=== PATIENT | female | born 1945 | race Caucasian/White ===

== ENCOUNTER → 2017-10-20 | Outpatient (CLI) | payer OTHER ==
[2017-10-20 12:51] LABS: BASO % 0.6 %; BASO ABS # 0.03 K/uL (0-0.2); EOS ABS # 0.28 K/uL (0-0.5); HEMATOCRIT 40.4 % (37-47); HEMOGLOBIN 13.5 g/dL (12.0-16.0); LYMPH % 29.3 %; LYMPH ABS # 1.36 K/uL (1.2-3.4); MEAN CORPUSCULAR HEMOGLOBIN 30.8 pg (25-34); MEAN CORPUSCULAR HGB CONC 33.4 g/dl (32-36); MEAN PLATELET VOLUME 11.7 fL (7.4-10.4); MONO % 8.6 %; NEUT % 55.5 %; NEUT ABS # 2.57 K/uL (1.4-6.5); PLATELET COUNT 244 K/uL (130-400); RED CELL DISTRIBUTION WIDTH CV 13.4 % (11.5-14.5); WHITE BLOOD COUNT 4.64 K/uL (4.8-10.8)
[2017-10-20 13:23] LABS: ALBUMIN 3.4 gm/dl (3.4-5.0); ALKALINE PHOSPHATASE 46 U/L (45-117); ALT/SGPT 27 U/L (12-78); AST/SGOT 19 U/L (15-37); BLOOD UREA NITROGEN 18 mg/dl (7-18); CALCIUM 8.7 mg/dl (8.5-10.1); CARBON DIOXIDE 27 mmol/L (21-32); CHOLESTEROL 181 mg/dl (0-200); CREATININE 0.73 mg/dl (0.60-1.20); GLUCOSE 85 mg/dl (70-99); LDL CHOLESTEROL CALCULATED 112 mg/dl; POTASSIUM 3.6 mmol/L (3.5-5.1); SODIUM 138 mmol/L (136-145); TOTAL PROTEIN 7.1 gm/dl (6.4-8.2)
== END | disposition home or self-care (01) ==
LOC: C.LABMFLN 08:48
PROVIDERS: ATTEND Family Medicine
DX: E78.5 Hyperlipidemia, unspecified (principal); I10 Essential (primary) hypertension

== ENCOUNTER 2021-05-21 07:47 | Observation (INO) ==
--- NOTE | 2021-03-31 12:05 | PAT Medication Instructions ---
Medication Instructions Date of Service March 31, 2021 Home Medications Medication Instructions Recorded fluticasone propionate 50 2 sprays INTNAS DAILY PRN #9.9 gm 05/14/19 mcg/actuation nasal spray,suspension (Flonase Allergy Relief) lovastatin 40 mg tablet 80 mg PO QPM #180 tab 05/01/20 buspirone 10 mg tablet 10 mg PO BID #60 tab 07/21/20 amoxicillin 875 mg-potassium 1 tab PO BID #20 tab 10/22/20 clavulanate 125 mg tablet (Augmentin) zolpidem 10 mg tablet 5 mg PO UD PRN #30 tab 03/08/21 fluticasone propionate 50 mcg/actuation nasal spray,suspension (Flonase Allergy Relief) 2 sprays INTNAS DAILY PRN acetaminophen 500 mg tablet 500 mg PO .COMPLEX PRN aspirin 81 mg tablet,delayed release 81 mg PO QAM lovastatin 40 mg tablet 80 mg PO QPM buspirone 10 mg tablet 10 mg PO BID amoxicillin 875 mg-potassium clavulanate 125 mg tablet (Augmentin) 1 tab PO BID zolpidem 10 mg tablet 5 mg PO UD PRN citalopram 20 mg tablet 20 mg PO QAM hydrochlorothiazide 25 mg tablet 25 mg PO QAM loratadine 10 mg tablet (Claritin) 10 mg PO QAM losartan 100 mg tablet 100 mg PO QAM Continue as directed amoxicillin 875 mg-potassium clavulanate 125 mg tablet (Augmentin) 1 tab PO BID ASK your prescriber and surgeon aspirin 81 mg tablet,delayed release 81 mg PO QAM DO NOT take the morning of surgery hydrochlorothiazide 25 mg tablet 25 mg PO QAM loratadine 10 mg tablet (Claritin) 10 mg PO QAM losartan 100 mg tablet 100 mg PO QAM Take morning of surgery With a small sip of water, OTHERWISE NOTHING TO EAT OR DRINK AFTER MIDNIGHT: acetaminophen 500 mg tablet 500 mg PO .COMPLEX PRN(okay to take up to 4 hours prior to surgery if needed). fluticasone propionate 50 mcg/actuation nasal spray,suspension (Flonase Allergy Relief) 2 sprays INTNAS DAILY PRN(if needed) buspirone 10 mg tablet 10 mg PO BID citalopram 20 mg tablet 20 mg PO QAM Take evening before surgery acetaminophen 500 mg tablet 500 mg PO .COMPLEX PRN(if needed) fluticasone propionate 50 mcg/actuation nasal spray,suspension (Flonase Allergy Relief) 2 sprays INTNAS DAILY PRN(if needed) lovastatin 40 mg tablet 80 mg PO QPM buspirone 10 mg tablet 10 mg PO BID zolpidem 10 mg tablet 5 mg PO UD PRN(if needed) Other Notes If you have any questions please call us at [phone] or [phone] or [phone] or [phone]
--- NOTE | 2021-04-13 12:44 | Anesthesiology Consultation ---
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 No known Covid positive exposures or Covid related symptoms. No known Covid infection in the past 90 days. Pt is vaccinated for Covid. Preop Covid testing scheduled 05/19/21 = will await results. Educated on importance of self quarantining, social distancing and wearing mask in public for the patient one week prior to surgery and after Covid testing done Pt seen by PCP 04/05/21= seen for preop evaluation. Patient will have lab work with her preop testing 04/13/21. Patient was seen by cardiology 06/22/2020 = history of syncope attributed to A mbien use (no further syncope since discontinuation of Ambien) 4 beat run of nonsustained V. tach on Holter monitor (asymptomatic) Mild to moderate mitral regurgitation. Hypertension. Holter monitor results are benign results and no further cardiac work-up is necessary since the patient is asymptomatic. Has not had any further episodes of syncope since stopping Ambien. No further work-up is necessary, should patient become symptomatic with these PVCs/PACs can consider adding low-dose metoprolol. Hypertensionwell-controlled. Continue cu rrent meds. Teaching & Discussion Pre-Anesthesia Teaching/Discussion Notes: Instructed NPO after midnight before surgery,except medications with 15 cc of water. Medication instructions provided according to the PAT guidelines. History Surgery Operation Date: 05/21/21 11:45 Proposed Procedures p Left Total Knee Arthroplasty with Possible Hebert Substitute (Augment), Hardware Removal - Kayden Hollingsworth DO Height/Weight Height: 5 ft 2 in Weight: 77.2 kg Allergies Allergy/AdvReac Type Severity Reaction Status Date / Time acetaminophen [From Percocet] Allergy Mild Rash Verified 04/05/21 13:31 oxycodone [From Percocet] Allergy Mild Rash Verified 04/05/21 13:31 Lisinopril TABS Allergy Mild Cough Uncoded 04/13/21 12:39 Medications Home Medications Medication Instructions Recorded Confirmed Last Taken fluticasone propionate 50 2 sprays INTNAS DAILY PRN #9.9 gm 05/14/19 04/05/21 02/18/20 mcg/actuation nasal spray,suspension (Flonase Allergy Relief) acetaminophen 500 mg tablet 500 mg PO .COMPLEX PRN tab 06/27/19 04/05/21 Unknown aspirin 81 mg tablet,delayed 81 mg PO QAM 02/07/20 04/05/21 Unknown release lovastatin 40 mg tablet 80 mg PO QPM #180 tab 05/01/20 04/05/21 Unknown buspirone 10 mg tablet 10 mg PO BID #60 tab 07/21/20 04/05/21 Unknown zolpidem 10 mg tablet 5 mg PO UD PRN #30 tab 03/08/21 04/05/21 Unknown citalopram 20 mg tablet 20 mg PO QAM 03/29/21 04/05/21 Unknown hydrochlorothiazide 25 mg tablet 25 mg PO QAM 03/29/21 04/05/21 Unknown loratadine 10 mg tablet (Claritin) 10 mg PO QAM PRN 03/29/21 04/05/21 Unknown losartan 100 mg tablet 100 mg PO QAM 03/29/21 04/05/21 Unknown Past Medical History Medical History (Updated 04/13/21 @ 16:35 by Kat Huynh PA-C) Anxiety and depression GERD (gastroesophageal reflux disease) No meds- well controlled and stable HTN (hypertension) Hyperlipemia Insomnia Osteoarthritis Prediabetes Per Hgb A1C 6.0 Exercise / Class Metabolic Activity II 4-5 Yardwork/Stairs/Walk up hill (one flight of stairs- no chest pain or SOB- pt tries to do 10,000 steps/day ) Past Family History Family History Aunt Diabetes Breast cancer Family/Other Colorectal cancer Other Family history of colon cancer Denies family history of Ovarian cancer Prostate cancer Myocardial infarction Past Surgical History Surgical History History of colonoscopy History of surgery on left wrist History of tooth extraction History of tubal ligation Hx of cataract extraction bilat S/P ORIF (open reduction internal fixation) fracture left knee Past Anesthesia History No Hx of Anesthesia Complications and No Family Hx of Anesthesia Complications History of PONV No Hx of PONV and No Hx of Motion Sickness Social History Smoking Status: Never smoker Do You Dip or Chew Tobacco: No Hx Alcohol Use: Yes Alcohol type: wine alcohol intake frequency: 0-2 drinks per day (1 glass of wine/day ) Hx Substance Use: No substance use type: does not use Review of Systems Mild cough- chronic- stable- mostly in the morning- chronic sinus issues - post nasal drip Patient denies chest pain, shortness of breath, dyspnea on exertion, wheezing, palpitations. No hx of seizures, stroke, TN, apnea/snoring. No hx of blood clots or blood transfusions Physical Exam Vital Signs VITALS BP 114/74 P 85 TEMP 98.2 SP02 95% RESP 16 Constitutional no acute distress ENMT Mouth: no TMJ clicking Thyromental Distance: > or= 3.5 Finger Breadths (3.5) Mallampati Class: I Missing molars Neck neck extension not limited Respiratory normal respiratory effort; no respiratory distress Auscultation: lungs clear to auscultation bilaterally; no wheezes Cardiovascular Rate/Rhythm: regular rate and regular rhythm Heart Sounds: no murmur Vessels: no carotid bruit Musculoskeletal Spine: no pain with cervical ROM Extremities: extremities normal to inspection Psychiatric Orientation: alert Lab Results Anesthesia Preop Results Results Anesthesia Widget: WBC 7.17 K/uL (4.8-10.8) 04/13/21 Hgb 13.0 g/dL (12.0-16.0) 04/13/21 Hct 39.7 % (37-47) 04/13/21 Plt 304 K/uL (130-400) 04/13/21 Na 142 mmol/L (136-145) 04/13/21 K 4.0 mmol/L (3.5-5.1) 04/13/21 Cl 105 mmol/L (98-107) 04/13/21 CO2 30 mmol/L (21-32) 04/13/21 BUN 16 mg/dl (6-23) 04/13/21 Creat 0.80 mg/dl (0.6-1.2) 04/13/21 Glucose Level 164 mg/dl (70-99) H 04/13/21 PT 10.0 Seconds (9.0-12.0) 04/13/21 PTT 28.5 Seconds (21.0-31.0) 04/13/21 INR 1.0 (0.9-1.1) 04/13/21 HA1c 6.0 % (4.5-5.6) H 04/13/21 Urine Color Yellow 04/13/21 Urine Appearance Clear (Clear) 04/13/21 Urine pH 5.0 (4.5-7.5) 04/13/21 Urine Specific Brooten 1.017 (1.000-1.030) 04/13/21 Urine Protein Negative (Negative) 04/13/21 Urine Glucose (UA) Negative (Negative) 04/13/21 Urine Ketones Trace (Negative) H 04/13/21 Urine Blood Negative (Negative) 04/13/21 Urine Nitrite Negative (Negative) 04/13/21 Urine Bilirubin Negative (Negative) 04/13/21 Urine Urobilinogen Negative (Negative) 04/13/21 Urine Leukocyte Esterase 2+ (Negative) H 04/13/21 Urine WBC (Auto) 10-30 /hpf (0-5) H 04/13/21 Urine RBC (Auto) 0-4 /hpf (0-4) 04/13/21 Urine Hyaline Casts (Auto) 1-5 /lpf (0-5) 04/13/21 Urine Epithelial Cells (Auto) >30 /lpf (0-5) H 04/13/21 Urine Bacteria (Auto) Negative (Negative) 04/13/21 Blood Type O Positive 04/13/21 Antibody Screen NEGATIVE 04/13/21 Testing Electrocardiogram Date: 04/13/21 Findings: + NSR @ (80bpm) Low voltage QRS. Chest X-Ray Date: 04/13/21 Findings: + NAD Echocardiogram Date: 05/13/19 EF: 57% RWMA: + none Other Findings: + diastolic dysfunction (Grade 1); no LVH Valvular Disease: + MR Other Testing Holter monitor 05/12/2020 = rhythm is sinus rhythm. Average heart rate of 75 bpm. Minimum HR is 47 bpm. Maximum HR is 137 bpm. No significant pauses or AV block noted. Occasional isolated, nonconducted and couplet APD's noted. Isolated nonsustained episodes of atrial tachycardia/ectopic atrial runs up to 5 beats in duration. Occasional isolated VPD's and couplet noted. No complex ventricular arrhythmia. Carotid artery duplex 05/13/2019 = less than 50% stenosis of right and left internal carotid artery. Antegrade flow of both vertebral arteries.
--- NOTE | 2021-05-20 16:41 | History & Physical Report ---
Date of Service May 20, 2021 Assessment & Plan (1) Osteoarthritis of left knee: Plan: Schedule a left TKA, removal hardware from patella, possible Augment allograft at the patella for 05.21.21. All potential risks, benefits, complications, alternatives, and rehab have been discussed with the patient and she wishes to proceed. Plan for ASA 81 mg BID x 4 wks for post op DVT prophylaxis. (2) Retained orthopedic hardware: History of Present Illness Chief Complaint: left knee pain Primary Care Provider: Nick Wilburn DO This is a patient with a hx of chronic left knee pain. She previously had an ORIF of the left patella. Subsequently, she developed DJD of the knee. She was treated conservatively but has failed all conservative management. She is now being set up for surgical tx. Allergies Allergy/AdvReac Type Severity Reaction Status Date / Time oxycodone [From Percocet] Allergy Mild Rash Verified 04/05/21 13:31 lisinopril AdvReac Mild Cough Verified 05/19/21 11:19 Home Medications Medication Instructions Recorded Confirmed Type fluticasone propionate 50 2 sprays INTNAS DAILY PRN #9.9 gm 05/14/19 04/05/21 Rx mcg/actuation nasal spray,suspension (Flonase Allergy Relief) acetaminophen 500 mg tablet 500 mg PO .COMPLEX PRN tab 06/27/19 04/05/21 History aspirin 81 mg tablet,delayed 81 mg PO QAM 02/07/20 04/05/21 History release lovastatin 40 mg tablet 80 mg PO QPM #180 tab 05/01/20 04/05/21 Rx buspirone 10 mg tablet 10 mg PO BID #60 tab 07/21/20 04/05/21 Rx hydrochlorothiazide 25 mg tablet 25 mg PO QAM 03/29/21 04/05/21 History loratadine 10 mg tablet (Claritin) 10 mg PO QAM PRN 03/29/21 04/05/21 History losartan 100 mg tablet 100 mg PO QAM 03/29/21 04/05/21 History citalopram 20 mg tablet 20 mg PO QAM #90 tab 05/06/21 Rx zolpidem 10 mg tablet 5 mg PO UD PRN #30 tab 05/06/21 Rx Past Med/Surg History Medical History Anxiety and depression GERD (gastroesophageal reflux disease) No meds- well controlled and stable HTN (hypertension) Hyperlipemia Insomnia Osteoarthritis Prediabetes Per Hgb A1C 6.0 Surgical History History of colonoscopy History of surgery on left wrist History of tooth extraction History of tubal ligation Hx of cataract extraction bilat S/P ORIF (open reduction internal fixation) fracture left knee Family History Aunt Diabetes Breast cancer Family/Other Colorectal cancer Other Family history of colon cancer Denies family history of Ovarian cancer Prostate cancer Myocardial infarction Social History Smoking Status: Never smoker Second Hand Exposure: No; Hx Alcohol Use: Yes Alcohol type: wine Alcohol Intake Frequency: 4 or More x per/Week Hx Substance Use: No Preferred Language: Nepalese Communication Ability: Effective Visual Impairment: Partially Limited Hearing Ability: Use of Hearing Aid Tank Car Loader Required: No Beliefs That Will Affect Care: None marital status: Current Living Situation: Spouse current occupational status: employed and retired current occupation: Used to work for [employer] How many Children do You have: 4 Feels Safe at Home: Yes Childhood Exposure to Second-Hand Smoke: No caffeine: Yes during the past year weight has: remained stable Dental Care, Regularly: Yes Physical Activity Frequency: Daily Seatbelt Use: always Assistive Devices: Glasses and Hearing Aid - Bilateral Physical Exam Constitutional: well developed and well nourished; no acute distress ENMT: external ear and nose normal, oropharynx normal Neck: trachea midline Respiratory: normal respiratory effort, lungs clear to auscultation Cardiovascular: Rate/Rhythm: regular rate and regular rhythm Gastrointestinal (Abdomen): normal bowel sounds, soft, nontender, no hepatosplenomegaly Musculoskeletal: Knee: + surgical incision (anterior left knee), + knee ROM with crepitation (left) and + joint line tenderness (left tricompartmental); no skin erythema and no ecchymosis Skin: no rashes, warm and dry Trauma: no evidence of skin trauma Neurologic: normal touch/pain/proprioception Psychiatric: A+Ox3, euthymic affect Speech: normal rate/rhythm/volume of speech Lymphatic: no cervical or axillary lymphadenopathy
[~2021-05-21 07:47] MED LIST: ACETAMINOPHEN 500 MG TAB PO SCH; BUPIVACAINE 0.5 % 5 MG/1 ML PF 10ML VIAL ONE; CeleBREX 200 MG CAP PO SCH; FAMOTIDINE 20 MG TAB PO SCH; GABAPENTIN 300 MG CAP PO SCH; LR 500ML BOLUS, THEN 15ML/HR IV SCH; METOCLOPRAMIDE HCL 10 MG TABLET PO SCH; MIDAZOLAM HCL 1 MG/ML 2ML VIAL ONE; ORTHO JOINT ANESTHETIC ONE; ROPIVACAINE 0.5% HCL/PF 150 MG, BUPIVACAINE 0.75% MPF 20 ML, EPINEPHrine 30MG/30ML (OR ... INFIL SCH; TRANEXAMIC ACID 1,000 MG **IV Intra-op IV SCH; TRANEXAMIC ACID 1,000 MG **IV Pre-op IV SCH; ceFAZolin 1000MG 1,000 MG/7.5 ML SYR IV SCH; ceFAZolin 330 MG/ML 1 GM VIAL ONE; dexAMETHasone 4 MG TAB PO SCH; fentaNYL citrate 100 MCG/2 ML VIAL ONE
--- NOTE | 2021-05-21 08:28 | History & Physical Bridge Note ---
Date of Service May 21, 2021 History & Physical Bridge Note I have examined the patient, reviewed the History & Physical and in the interval since the performance of the History & Physical I have noted the following changes of clinical significance: no changes noted
[2021-05-21] MEDS ORDERED: fentaNYL citrate 100 MCG/2 ML VIAL IV PRN (08:29)
[2021-05-21] MEDS ORDERED: ePHEDrine sulfate 50 MG/ML AMP IV PRN (08:29)
[2021-05-21] MEDS ORDERED: ATROPINE SULFATE 0.1 MG/ML 10ML SYR IV PRN (08:29)
[2021-05-21] MEDS ORDERED: ONDANSETRON INJ 2 MG/ML 2 ML VIAL IV PRN ×2 (08:29→13:35)
--- NOTE | 2021-05-21 11:31 | Post Operative Brief Note ---
Immediate Post Op Note v1 Date of Surgery May 21, 2021 Pre & Post Diagnosis Operation Date: 05/21/21 09:45 Pre-Op Diagnosis: Left Knee Osteoarthritis, posttraumatic degenerative arthritis left knee, painful retained Hardware patella Post-Op Diagnosis: Left Knee Osteoarthritis, posttraumatic degenerative arthritis left knee, painful retained Hardware patella I identified the patient and participated in the time-out.: Yes Procedure Operation Date: 05/21/21 09:45 Actual Procedures p Left Total Knee Arthroplasty using [employer] MRI matched, cemented size 5 femur, size 5 tibia, 13 mm posterior stabilized polyethylene and 38 mm round patella, hardware Removal patella(Left) - Kayden Hollingsworth DO Surgeon Kayden Hollingsworth DO Systems Test Analyst Jamarcus Yoo PA-C Estimated Blood Loss 30 Findings Consistent with Post-Op Diagnosis Specimens Bone and tissue left knee Drains Hemovac Drain Anesthesia Type MAC Spinal Regional Complications none Disposition Accompanied Patient To Recovery: No Overlapping Procedure I was present for: the critical portions of procedure. I was immediately available: during the entire case.
[2021-05-21] MEDS ORDERED: ONDANSETRON INJ 2 MG/ML 2 ML VIAL ONE (11:48)
[2021-05-21] MEDS ORDERED: PROPOFOL IV EMULSION 10 MG/ML 20 ML VIAL IV ONE (11:48)
[2021-05-21] MEDS ORDERED: LIDOCAINE 2% 20 MG/ML 5 ML SYR IV ONE (11:48)
--- NOTE | 2021-05-21 12:44 | Anesthesiology Progress Note ---
Date of Service May 21, 2021 Anesthesia Post Procedure Vital Signs Vital Signs: Temp Pulse Pulse Resp BP Pulse Ox 05/21/21 12:25 78 14 128/70 97 05/21/21 12:15 87 13 128/77 97 05/21/21 12:05 97.5 F L 96 H 12 124/63 98 05/21/21 08:15 98.2 F 77 20 154/87 H 95 Transfer of Care Handoff Completed per policy Notes Mental Status: alert / awake / arousable and participated in evaluation Patient Amnestic to Procedure: Yes Nausea / Vomiting: adequately controlled Pain: adequately controlled Airway Patency, RR, SpO2: stable & adequate BP & HR: stable & adequate Hydration State: stable & adequate Neuraxial Anesthesia: was administered and sensory block is resolving Anesthetic Complications: no major complications apparent and Pt Satisfied with anesthetic care
--- NOTE | 2021-05-21 12:48 | XRay Report ---
XR knee LT 1 or 2V routine CLINICAL HISTORY: Surgical Post Op TECHNIQUE: 2 views of the left knee were obtained. Comparison: None available at the time of this dictation. FINDINGS: Patient is status post total knee arthroplasty with expected postsurgical changes including soft tiss ue swelling, subcutaneous emphysema, and surgical staple placement. No periarticular lucency or hardw are fracture is seen. The alignment is anatomic. Joint spaces are well-preserved. No joint effusion i s seen. IMPRESSION: Expected postoperative appearance status post placement of total knee arthroplasty. ACT 112: Negative or not required by law. Electronically signed by: Danis Gan M.D. 05/21/2021 12:46 PM
[2021-05-21] MEDS ORDERED: MAGNESIUM HYDROXIDE SUSP 30 ML UDC PO PRN (13:35)
[2021-05-21] MEDS ORDERED: NALOXONE HCL 0.4 MG/1 ML VIAL/CARP IV PRN (13:35)
[2021-05-21] MEDS ORDERED: bisacodyL 10 MG SUPP PR PRN (13:35)
[2021-05-21] MEDS ORDERED: LORATADINE 10 MG TAB PO PRN (13:35)
[2021-05-21] MEDS ORDERED: FLUTICASONE PROPIONATE NA SPR 16 GM BTL PRN (13:35)
[2021-05-21] MEDS ORDERED: ZOLPIDEM TARTRATE 5 MG TAB PO PRN (13:35)
[2021-05-21] MEDS ORDERED: HYDROmorphone INJ 0.5 MG/0.5 ML SYR IV PRN (13:35)
[2021-05-21] MEDS: SODIUM CHLORIDE 0.9% 1000ML 1,000 ML IV SCH (16:22)
[2021-05-21] MEDS: ceFAZolin 1000MG 1,000 MG/7.5 ML SYR IV SCH (17:56)
[2021-05-21] MEDS: HYDROCODONE/ACETAMOPHEN 5/325MG TAB PO PRN (19:29)
[2021-05-21] MEDS ORDERED: SENNA 8.6 MG TAB PO SCH (21:00)
[2021-05-21] MEDS ORDERED: LOVASTATIN 20 MG TAB PO SCH (21:00)
[2021-05-21] MEDS: ASPIRIN 81 MG ECTAB PO SCH (21:14)
[2021-05-21] MEDS: busPIRone 5 MG TAB PO SCH (21:14)
[2021-05-21] MEDS: DOCUSATE SODIUM 100 MG CAP PO SCH (21:14)
--- NOTE | 2021-05-21 21:50 | Operative Report (OR) ---
DATE OF PROCEDURE: 05/21/2021 PREOPERATIVE DIAGNOSES: 1. Left knee osteoarthritis. 2. Posttraumatic degenerative arthritis, left knee. 3. Painful retained hardware of the patella. POSTOPERATIVE DIAGNOSES: 1. Left knee osteoarthritis. 2. Posttraumatic degenerative arthritis, left knee. 3. Painful retained hardware of the patella. PROCEDURE: 1. Left total knee arthroplasty using [employer] MRI matched cemented size 5 femur, size 5 tib ia, 13 mm posterior stabilized polyethylene and 38 mm round patella. 2. Hardware removal of patella including pins and wires. SURGEON: Kayden Hollingsworth DO. GEOGRAPHIC INFORMATION SYSTEM SURVEYOR: Jamarcus Yoo PA-C who was present for patient positioning, sterile prep and drape, management of retractors and instruments. He was present through the critical portions of the case i ncluding wound closure, application of sterile dressing and transport of the patient to recovery. ANESTHESIA: Spinal, MAC regional with intraarticular local. SPECIMENS: Bone and tissue of the left knee. DRAINS: Hemovac x2. COMPLICATIONS: None. BLOOD LOSS: 30 mL. PERTINENT HISTORY: This is a 75-year-old female who previously sustained a tibial plateau and patell a fracture. She underwent ORIF of the patella and healed her fractures. Continued to have discomfort in the knee and then over the last 2 to 3 years, had particular worsening of her left knee pain with loss of joint space, marginal osteophytes, subchondral sclerosis, and subchondral cysts with knee pa in related to her hardware in the patella. The patient was then scheduled for surgery as indicated. All potential risks, benefits, complications, alternatives, rehab potential for incomplete relief sym ptoms, need for further surgery, DVT, PE, , persistent pain, swelling, scarring, weakness, neuro vascular injury, wound complications, hardware failure, nonunion, malunion, bone fracture were discus sed with the patient. The patient decided to proceed with the procedure as indicated. DESCRIPTION OF PROCEDURE: The patient was taken to the Operating Suite and placed supine on the Oper ating Room table after the patient had been administered spinal epidural anesthetic and femoral nerve sheath catheter in the preop holding area. The patient was sedated. Proper operative site was identi fied. The tourniquet was placed high on the left lower extremity. Left lower extremity was then steri tracy prepped and draped in the usual fashion. Elevated and exsanguinated with an Esmarch bandage. Geoffrey rniquet inflated to 350 mmHg. Next a midline 10-blade scalpel incision was made directly over the mid dle one-third of the patella extending to the level of the tibial tubercle. The incision was deepened through the subcutaneous tissue and meticulous hemostasis with electrocautery. Full-thickness skin f laps were developed taking care to avoid neurovascular bundles. Next, median parapatellar capsular in cision was made 10-blade scalpel after the superior medial corner had been marked with a marking pen for later reapproximation. Next, patella was everted. Soft tissue releases were performed of the knee including along the anterior medial corner to the level of the MCL which was protected and released adjacent to the MCL with Lowry elevator. Fat pad was resected anteriorly and small half boudreaux portion o f tissue was resected at the superior margin of the dermal articular surface. Next, the patella thick ness was measured with caliper and held in everted position with Laz. Next, sagittal saw was used to make orthogonal cuts to the level of the patellar nose. Caliper was used to remeasure the patella and the appropriate sized patellar button, in this case size 38 was felt to be most appropriate. The alignment guide was then put in place. Peg holes were drilled and alignment guide was then removed. N ext, the femoral cutting block was placed in the distal aspect of the femur and pinned in place. Next the distal femoral cut was made based off the patients anatomy and MRI patient matched cutting bloc k. Next, a size 5 distal 4-in-1 cutting block was tamped in place then stabilized with pins. Next, th e appropriate soft tissue retraction was made and anterior chamfer and posterior chamfer cuts were ma de with the sagittal saw. Next, the 4-in-1 cutting block was then removed followed by removal of all bone fragments. Next, attention was then directed toward the proximal tibia. Blunt Juan was placed p osterior to the tibia to protract it anteriorly and median and lateral sharp Juan retractors were pl aced. Soft tissue and portion of the menisci were then resected at this time and MRI matched proximal tibial cutting block was then pinned in place and proximal tibial cut was made with sagittal saw. Al ignment guide was removed. Pins were removed and the proximal fragment of the tibia was then sharply excised and removed. Next, proximal tibial tray trial size 5 was then pinned in place and this was fe lt to be well matched for the patients anatomy, pinned in place and keel punch was then utilized wit h mallet. Keel punch was then removed and cervical laminar leave specialist was then placed in the medial com partment. The lateral compartment was then inspected for osteophytes and soft tissue impingement. The re was found to be none. I then switched to the lateral compartment and medial compartment was then d ebrided of any soft tissue impingement. Next the laminar leave specialist was removed and the femoral trial, in this case size 5 was then malleted in place, pinned and then femoral notch milling guide was then placed anteriorly. This was then reamed and then punched with sharp punch and mallet. Next, the dista l aspect of the femur was then inserted in notch guide and size 13 mm poly was inserted, reduced. Pat ellar button was then placed in trial and range of motion was performed. Next after range of motion a nd stability test was performed the implants were found to be appropriate size. Trials were all remov ed. The posterior capsule was injected with Orthomix. Next the joint was then cleansed with pulsatile lavage using approximately 3 liters normal saline with Bacitracin additive. Next all bony surfaces w ere the suctioned and drained and standard cementing technique was performed with ____ and all excess cement was then removed from around the implant site. A 13 mm posterior stabilized polyethylene bear ing was implanted and checked for stability. The patellar button was then cemented in place and held in place with patellar clamp. Next, double lumen 10 Guyanese Hemovac drain was then placed and exiting anterolaterally and the capsule was closed using interrupted #1 Vicryl sutures. The dermis was closed using buried interrupted 2-0 Vicryl and the skin closed with skin jaycee. A sterile compressive slick ssing was applied from the toes to the groin and overwrapped with Keagan wrap. Tourniquet was released. The patient was awakened and taken to recovery in stable condition. Job ID: [id number]
[2021-05-22] MEDS: HYDROCODONE/ACETAMOPHEN 5/325MG TAB PO PRN ×3 (00:24→11:27)
[2021-05-22] MEDS: ceFAZolin 1000MG 1,000 MG/7.5 ML SYR IV SCH (02:25)
[2021-05-22] MEDS: SODIUM CHLORIDE 0.9% 1000ML 1,000 ML IV SCH (02:52)
[2021-05-22 05:46] LABS: Hemoglobin 11.6 g/dL (12.0-16.0); Mean Corpuscular Hemoglobin 30.9 pg (25-34); Mean Corpuscular Hgb Conc 33.1 g/dL (32-36); Mean Corpuscular Volume 93.1 fL (80-100); Mean Platelet Volume 10.3 fL (7.4-10.4); Platelet Count 217 K/uL (130-400); RDW Standard Deviation 44.2 fL (36.4-46.3); Red Blood Count 3.76 M/uL (4.2-5.4); White Blood Count 10.94 K/uL (4.8-10.8)
[2021-05-22 06:12] LABS: BUN Creatinine Ratio 33.3 (10-20); Calcium 8.2 mg/dl (8.5-10.1); Creatinine Clr Calc Pharmacy 66.7 ml/min; Est GFR (Non-African American) 84.6 ml/min; Potassium 3.8 mmol/L (3.5-5.1)
--- NOTE | 2021-05-22 07:57 | Orthopedic Progress Note ---
Date of Service May 22, 2021 Assessment & Plan (1) Status post total left knee replacement: Plan: POD#1 left TKA -PT/OT -Pain management as written -DVT prophylaxis-ASA 81mg BID 1 mo, SCDs, TEDs -AM labs-hemoglobin at 11.6, mild leukocytosis likely reactive -D/C planning-home with HHPT vs OPPT. Patient would like to discuss with CM. Will plan on discharge home today after PT. Admission and Anticipated Discharge Date Admission Date: May 21, 2021 Subjective Patient is POD#1 left TKA. Doing well this morning. Pain well controlled. No other complaints. Denies chest pain, sob, dizziness, n/v/d, headache, fever/chills. Review of Systems Review of Systems: All systems reviewed & are unremarkable except as noted in Subjective Physical Exam Physical Exam: Left knee dressing is c/d/i, toes mobile. Mild weakness with dorsiflexion likely residual from the block. No calf tenderness. Distally n/v status and sensation intact. Constitutional: WD/WN, vitals as above Results & Data ([facility]) Vital Signs (Past 12 Hours) Vital Signs Temp Pulse Resp BP Pulse Ox 05/22/21 07:45 36.5 C 64 17 123/78 95 05/22/21 02:32 36.5 C 81 16 153/91 H 97 05/21/21 23:15 36.5 C 81 18 138/84 95 Diagnostic Findings Lab Results 05/21/21 05/21/21 05/22/21 Range/Units 08:15 Unknown 05:37 WBC 10.94 H (4.8-10.8) K/uL RBC 3.76 L (4.2-5.4) M/uL Hgb 11.6 L (12.0-16.0) g/dL Hct 35.0 L (37-47) % MCV 93.1 (80-100) fL MCH 30.9 (25-34) pg MCHC 33.1 (32-36) g/dL RDW Std Deviation 44.2 (36.4-46.3) fL RDW Coeff of Calixto 13.0 (11.5-14.5) % Plt Count 217 (130-400) K/uL MPV 10.3 (7.4-10.4) fL Sodium (136-145) mmol/L Potassium (3.5-5.1) mmol/L Chloride (98-107) mmol/L Carbon Dioxide (21-32) mmol/L Anion Gap (3-11) BUN (6-23) mg/dl Creatinine (0.6-1.2) mg/dl Est Cr Clr Drug Dosing ml/min Est GFR ( Amer) ml/min Est GFR (Non-Af Amer) ml/min BUN/Creatinine Ratio (10-20) Glucose (70-99(Fasting)) mg/dl Calcium (8.5-10.1) mg/dl Hepatitis C Ab Screen Neg (Neg) SARS-CoV-2, RNA, NAAT NEGATIVE (NEGATIVE) 05/22/21 Range/Units 05:37 WBC (4.8-10.8) K/uL RBC (4.2-5.4) M/uL Hgb (12.0-16.0) g/dL Hct (37-47) % MCV (80-100) fL MCH (25-34) pg MCHC (32-36) g/dL RDW Std Deviation (36.4-46.3) fL RDW Coeff of Calixto (11.5-14.5) % Plt Count (130-400) K/uL MPV (7.4-10.4) fL Sodium 136 (136-145) mmol/L Potassium 3.8 (3.5-5.1) mmol/L Chloride 105 (98-107) mmol/L Carbon Dioxide 25 (21-32) mmol/L Anion Gap 6 (3-11) BUN 23 (6-23) mg/dl Creatinine 0.69 (0.6-1.2) mg/dl Est Cr Clr Drug Dosing 66.7 ml/min Est GFR ( Amer) 98.0 ml/min Est GFR (Non-Af Amer) 84.6 ml/min BUN/Creatinine Ratio 33.3 H (10-20) Glucose 135 H (70-99(Fasting)) mg/dl Calcium 8.2 L (8.5-10.1) mg/dl Hepatitis C Ab Screen (Neg) SARS-CoV-2, RNA, NAAT (NEGATIVE)
[2021-05-22] MEDS: busPIRone 5 MG TAB PO SCH (08:02)
[2021-05-22] MEDS: ASPIRIN 81 MG ECTAB PO SCH (08:02)
[2021-05-22] MEDS: DOCUSATE SODIUM 100 MG CAP PO SCH (08:02)
[2021-05-22] MEDS ORDERED: hydroCHLOROthiazide 25 MG TAB PO SCH (09:00)
[2021-05-22] MEDS ORDERED: MULTIVITAMIN TAB PO SCH (09:00)
[2021-05-22] MEDS ORDERED: CITALOPRAM 20 MG TAB PO SCH (09:00)
[2021-05-22] MEDS ORDERED: LOSARTAN POTASSIUM 50 MG TAB PO SCH (09:00)
--- NOTE | 2021-05-24 14:45 | Discharge Summary ---
Date of Service May 24, 2021 Admission HPI Per Admitting Provider This is a patient with a hx of chronic left knee pain. She previously had an ORIF of the left patella. Subsequently, she developed DJD of the knee. She was treated conservatively but has failed all conservative management. She is now being set up for surgical tx. Admission Exam Per Admitting Provider Physical Exam Constitutional: well developed and well nourished; no acute distress ENMT: external ear and nose normal, oropharynx normal Neck: trachea midline Respiratory: normal respiratory effort, lungs clear to auscultation Cardiovascular: Rate/Rhythm: regular rate and regular rhythm Gastrointestinal (Abdomen): normal bowel sounds, soft, nontender, no hepatosplenomegaly Musculoskeletal: Knee: + surgical incision (anterior left knee), + knee ROM with crepitation (left) and + joint line tenderness (left tricompartmental); no skin erythema and no ecchymosis Skin: no rashes, warm and dry Trauma: no evidence of skin trauma Neurologic: normal touch/pain/proprioception Psychiatric: A+Ox3, euthymic affect Speech: normal rate/rhythm/volume of speech Lymphatic: no cervical or axillary lymphadenopathy Principal Diagnosis Left Knee Arthroscopy Discharge Data Allergies Allergy/AdvReac Type Severity Reaction Status Date / Time oxycodone [From Percocet] Allergy Mild Rash Verified 05/21/21 08:21 lisinopril AdvReac Mild Cough Verified 05/21/21 08:21 Procedures Performed Operation Date: 05/21/21 09:45 Actual Procedures p Left Total Knee Arthroplasty, (Left) - Kayden Hollingsworth DO s Hardware Removal at Patella(Left) - Kayden Hollingsworth DO Ordered Studies 05/21/21 05:00 US - OR guided needle placemen Routine Hospital Course (1) Osteoarthritis of left knee: Total Time Total Time Spent Total Time Spent (In Minutes): Patient:NATHAN LOMBARDI Admit Date:05/21/21 MR#:[id number] Att Phy:Kayden Hollingsworth D.O. Acct ID:[id number] Ashley Phy:Nick Wilburn Date:1945 Fam Phy: Age:75 Location:3E Sex:F Room/Bed:[facility] cc: ~ *NOTICE TO RECEIVING GREEN PARTY/AGENCY This information is strictly Confidential and protected under [place] law. [place] law prohibits you from making any further disclosure of this information unless further disclosure is expressly permitted by the written consent of the person to whom it pertains or is authorized by law. A general authorization for the release of medical or other information is not sufficient for this purpose. Hospital accepts no responsibility if the information is made available to any other person, INCLUDING THE PATIENT. Date of Service May 22, 2021 Assessment & Plan (1) Status post total left knee replacement: Plan: POD#1 left TKA -PT/OT -Pain management as written -DVT prophylaxis-ASA 81mg BID 1 mo, SCDs, TEDs -AM labs-hemoglobin at 11.6, mild leukocytosis likely reactive -D/C planning-home with HHPT vs OPPT. Patient would like to discuss with CM. Will plan on discharge home today after PT. Admission and Anticipated Discharge Date Admission Date: May 21, 2021 Subjective Patient is POD#1 left TKA. Doing well this morning. Pain well controlled. No other complaints. Denies chest pain, sob, dizziness, n/v/d, headache, fever/chills. Review of Systems Review of Systems: All systems reviewed & are unremarkable except as noted in Subjective Physical Exam Physical Exam: Left knee dressing is c/d/i, toes mobile. Mild weakness with dorsiflexion likely residual from the block. No calf tenderness. Distally n/v status and sensation intact. Constitutional: WD/WN, vitals as above Results & Data ([facility]) Vital Signs (Past 12 Hours) Vital Signs Temp Pulse Resp BP Pulse Ox 05/22/21 07:45 36.5 C 64 17 123/78 95 05/22/21 02:32 36.5 C 81 16 153/91 H 97 05/21/21 23:15 36.5 C 81 18 138/84 95 Diagnostic Findings Lab Results 05/21/21 05/21/21 05/22/21 Range/Units 08:15 Unknown 05:37 WBC 10.94 H (4.8-10.8) K/uL RBC 3.76 L (4.2-5.4) M/uL Hgb 11.6 L (12.0-16.0) g/dL Hct 35.0 L (37-47) % MCV 93.1 (80-100) fL MCH 30.9 (25-34) pg MCHC 33.1 (32-36) g/dL RDW Std Deviation 44.2 (36.4-46.3) fL RDW Coeff of Calixto 13.0 (11.5-14.5) % Plt Count 217 (130-400) K/uL MPV 10.3 (7.4-10.4) fL Sodium (136-145) mmol/L Potassium (3.5-5.1) mmol/L Chloride (98-107) mmol/L Carbon Dioxide (21-32) mmol/L Anion Gap (3-11) BUN (6-23) mg/dl Creatinine (0.6-1.2) mg/dl Est Cr Clr Drug Dosing ml/min Est GFR ( Amer) ml/min Est GFR (Non-Af Amer) ml/min BUN/Creatinine Ratio (10-20) Glucose (70-99(Fasting)) mg/dl Calcium (8.5-10.1) mg/dl Hepatitis C Ab Screen Neg (Neg) SARS-CoV-2, RNA, NAAT NEGATIVE (NEGATIVE) 05/22/21 Range/Units 05:37 WBC (4.8-10.8) K/uL RBC (4.2-5.4) M/uL Hgb (12.0-16.0) g/dL Hct (37-47) % MCV (80-100) fL MCH (25-34) pg MCHC (32-36) g/dL RDW Std Deviation (36.4-46.3) fL RDW Coeff of Calixto (11.5-14.5) % Plt Count (130-400) K/uL MPV (7.4-10.4) fL Sodium 136 (136-145) mmol/L Potassium 3.8 (3.5-5.1) mmol/L Chloride 105 (98-107) mmol/L Carbon Dioxide 25 (21-32) mmol/L Anion Gap 6 (3-11) BUN 23 (6-23) mg/dl Creatinine 0.69 (0.6-1.2) mg/dl Est Cr Clr Drug Dosing 66.7 ml/min Est GFR ( Amer) 98.0 ml/min Est GFR (Non-Af Amer) 84.6 ml/min BUN/Creatinine Ratio 33.3 H (10-20) Glucose 135 H (70-99(Fasting)) mg/dl Calcium 8.2 L (8.5-10.1) mg/dl Hepatitis C Ab Screen (Neg) SARS-CoV-2, RNA, NAAT (NEGATIVE) Discharge Plan Discharge Items Patient Disposition: Home - Home Health Services Reason For Visit: Left Knee Osteoarthritis, Retained Hardware Discharge Diagnosis: Left knee osteoarthritis Activity: Per Instructions section Non-emergency contact: Surgeon Call non-emergency contact if: you have any medication questions, your pain is not controlled, your pain is concerning for you, you have a fever, your temperature is above 101, your wound has increased redness and your wound has increased drainage Follow-up/Referrals: Nick Wilburn DO [Primary Care Provider] - Diet: Regular Addtl Attending Provider Instructions: ACTIVITY RECOMMENDATIONS: SELF CARE INSTRUCTIONS AFTER TOTAL KNEE REPLACEMENT A. You may need to continue a physical therapy program after discharge from the hospital. There are several options available to you. Your doctor will assist you in selecting the best one for you. 1. An out-patient facility 2 to 3 times a week for therapy or home therapy. 2. Continue working on all exercises taught to you in the hospital. Your goals should be to increase bending of your knee to 90 degrees and beyond and to fully straighten your knee. B. You may progress at your own pace from walking with a walker or crutches to a cane; then to no assistive devices. C. Make walking a part of your daily routine. Be up as much as comfortable with rest periods throughout the day. Rest with leg elevation is very important. Use the ice wrap frequently for the first 3-4 weeks. D. There are no restrictions on activities. You may ride in a car, shop, participate in engraver pantograph and all social activities. E. Wear the long elastic stockings (RADHA hose) 20 hours a day for 2 weeks after surgery. They can be removed several times a day for laundering and for a bath. F. You may shower, no tub baths until cleared by your doctor. SPECIAL CARE INSTRUCTIONS: VERY IMPORTANT TO READ AND REVIEW A. There are a few signs you need to watch for after you are home. Call [facility] if you notice any of the followin. Increased severe knee pain. Some pain is expected especially when you exercise. 2. Increased swelling in your leg or knee; pain or swelling of the calf muscle in either lower leg. 3. Any fluid drainage from the incision. 4. Shortness of breath or chest pain. B. Please call [facility] at if you have any concerns or questions about your operation or recovery. The doctor or his nurse will return your call promptly. C. You must take antibiotics before dental work, bladder, bowel or other surgery. Your doctor will provide you with a permanent care to carry describing this precaution. IMPORTANT: * REMEMBER TO TAKE ASPIRIN, 81 MG, TWICE DAILY FOR 4 WEEKS UNLESS OTHERWISE DIRECTED. THIS IS YOUR BLOOD THINNER. * HIGH RISK PATIENTS MAY BE PRESCRIBED A STRONGER BLOOD THINNER. THIS WILL BE PROVIDED AT DISCHARGE. * CALL IF INCREASED PAIN, REDNESS, DRAINAGE OR FEVER GREATER THAT 101. * WEAR RADHA HOSE 20 HOURS PER DAY FOR 2 WEEKS. * This is a large suction dressing covering your incision. This will help pull any excess drainage from the wound and allow your incision to heal properly. You may shower with this if you can keep the unit outside of the shower. If any bleeding or leakage is noted please call your doctor's office. This will remain on your incision for 7 days and then should be removed. This can be done yourself or by the home nursing staff if applicable. The entire unit is disposable once removed. Once removed, keep incision clean and dry. If redness or drainage is noted, please call your surgeon. IF INCISION IS LEAKING THROUGH DRESSING, CALL THE OFFICE . FOLLOW UP VISIT: If appointment is not already scheduled: Please call [facility] to make a follow-up appointment for 2 weeks after your surgery at . Stand-Alone Forms: My [facility] [employer], Smoking Cessation Medications and DC Order Prescriptions: New aspirin 81 mg tablet,delayed release (DR/EC) 81 mg PO BID Qty: 60 RF: 0 hydrocodone-acetaminophen 5-325 mg tablet 1 - 2 tab PO .Q4h-6h MDD 6 PRN (Reason: pain) Qty: 30 RF: 0 Continued fluticasone propionate [Flonase Allergy Relief] 50 mcg/actuation spray,suspension 2 sprays INTNAS DAILY PRN (Reason: nasal congestion) Qty: 9.9 RF: 2 lovastatin 40 mg tablet 80 mg PO QPM Qty: 180 RF: 3 buspirone 10 mg tablet 10 mg PO BID Qty: 60 RF: 2 citalopram 20 mg tablet 20 mg PO QAM Qty: 90 RF: 0 zolpidem 10 mg tablet 5 mg PO UD PRN (Reason: Sleep) Qty: 30 RF: 0 acetaminophen 500 mg tablet 500 mg PO .COMPLEX PRN (Reason: fever or pain) RF: 0 hydrochlorothiazide 25 mg tablet 25 mg PO QAM RF: 0 losartan 100 mg tablet 100 mg PO QAM RF: 0 loratadine [Claritin] 10 mg tablet 10 mg PO QAM PRN (Reason: Allergy Symptoms) RF: 0 Discontinued aspirin 81 mg Tablet,Delayed Release (Dr/Ec) 81 mg PO QAM RF: 0 Discharge Orders: Discharge Order (Routine); Ordered 05/22/21 Ordered By: Grant Ortega Admission Data Admit Date/Time: 05/21/21 12:26 Attending Provider: Kayden Hollingsworth Admit Provider: Kayden Hollingsworth Primary Care Provider: Nick Wilburn Other Interventions: Discharge Summary Assessment (RN) Last Done: 05/22/21 11:42
== END 2021-05-22 14:26 | disposition home health service (06) ==
LOC: 3E 07:47 → ASU 07:47